=== PATIENT | male | born 1965 | race Two or more races ===

== ENCOUNTER 2017-07-10 19:51 | Inpatient (IN) | payer MEDICARE, OTHER ==
[~2017-07-10] VITALS: Ht 175.3 cm; Wt 86.6 kg
[2017-07-10 20:20] LABS: BASOPHILS % (AUTO) 0.7 % (0.0-2.0); EOSINOPHILS # (AUTO) 0.1 /CMM (0.0-0.7); EOSINOPHILS % (AUTO) 2.2 % (0.0-6.0); HEMATOCRIT 42 % (39-51); LYMPHOCYTES # (AUTO) 1.5 /CMM (0.8-4.8); LYMPHOCYTES % (AUTO) 23.2 % (20.0-44.0); MEAN CORPUSCULAR HEMOGLOBIN 29 PG (26.0-33.0); MEAN CORPUSCULAR HGB CONC 33 g/dl (31.0-36.0); MEAN CORPUSCULAR VOLUME 86 fL (80-96); MONOCYTES # (AUTO) 0.4 /CMM (0.1-1.30); MONOCYTES % (AUTO) 6.6 % (2.0-12.0); NEUTROPHILS # (AUTO) 4.4 /CMM (1.8-8.9); NEUTROPHILS % (AUTO) 67.3 % (43.0-81.0); PLATELET COUNT (AUTO) 269 /CMM (150-450); RDW COEFFICIENT OF VARIATION 14.5 (11.5-15.0); WHITE BLOOD COUNT (AUTO) 6.4 K/uL (4.3-11.0)
--- NOTE | 2017-07-10 20:25 | NUR ---
PT NAVIN, PT STATES HE WANTS TO KILLHIMSELF BUT DENIES HI PT FROM [facility], PT AOX3 RR EVEN AND UNLABORED. NO SOB NOTED. NAD NOTED. NO NVD AT THIS TIME. PT GOWNED WAITING FOR MD REYNA. PT STATES NO ACTIVE PLAN AT THIS TIME. SAFETY PRECAUTIONS PLACED.
--- NOTE | 2017-07-10 20:26 | NUR ---
LAB AT BEDSIDE FOR BLOOD DRAW.
[2017-07-10 20:45] LABS: CALCIUM, SERUM 9.3 mg/dL (8.5-10.1); CARBON DIOXIDE 30 mmol/L (21-32); CHLORIDE 103 mmol/L (98-107); GLUCOSE 93 mg/dL (74-106); SODIUM SERUM 141 mmol/L (136-145); UREA NITROGEN, BLOOD 20 mg/dL (7-18)
[2017-07-10 21:02] LABS: ALANINE AMINOTRANSFERASE 17 U/L (12-78); ALBUMIN 3.9 g/dL (3.4-5.0); ALCOHOL, BLOOD < 3 mg/dL (0-0); ALKALINE PHOSPHATASE 74 U/L (46-116); ASPARTATE AMINOTRANSFERASE 16 U/L (15-37); BILIRUBIN,DIRECT 0.1 mg/dL (0.0-0.2); BILIRUBIN,TOTAL 0.3 mg/dL (0.2-1.0); SALICYLATE 6.6 mg/dL (2.8-20.0); TOTAL PROTEIN, SERUM 7.6 g/dL (6.4-8.2)
[2017-07-10 21:07] LABS: ACETAMINOPHEN 0 ug/ml (10-30)
[2017-07-10] MEDS ORDERED: LIDOCAINE 2% JEL UROJET 10 ML MM ONE ×2 (21:51→22:00)
--- NOTE | 2017-07-10 22:21 | NUR ---
URINE COLLECTED. CALLED LAB FOR SVP.
--- NOTE | 2017-07-10 22:32 | NUR ---
PT COMFORTABLE AT THIS TIME. NO C/O PAIN.
[2017-07-10 22:53] LABS: APPEARANCE,URINE CLEAR (CLEAR); BILIRUBIN,URINE NEGATIVE (NEGATIVE); BLOOD, URINE NEGATIVE Ery/uL (NEGATIVE); COLOR,URINE YELLOW (YELLOW); KETONES,URINE TRACE (NEGATIVE); LEUKOCYTE ESTERASE ,URINE NEGATIVE (NEGATIVE); NITRITE, URINE NEGATIVE (NEGATIVE); PROTEIN,URINE NEGATIVE (NEGATIVE); UGLUCOSE NEGATIVE (NEGATIVE); UROBILINOGEN,URINE 0.2 EU/dL (0.2)
--- NOTE | 2017-07-10 22:55 | NUR ---
ART AT BEDSIDE FOR EVAL.
--- NOTE | 2017-07-10 23:00 | NUR ---
PER ART. PT PLACED ON 5150 HOLD.
[2017-07-10 23:17] LABS: BACTERIA,URINE None seen /HPF (None Seen); HYALINE CASTS, URINE Few /LPF (None Seen); RBC,URINE 0-2 /HPF (0-2); SQUAMOUS EPITHELIAL CELL,UR Few /HPF (None Seen); WBC,URINE 0-2 /HPF (0-3)
[2017-07-10 23:18] LABS: MUCUS,URINE Moderate /LPF (None Seen)
--- NOTE | 2017-07-10 23:20 | NUR ---
REPORT GIVEN TO JOHN LEE FOR [facility] 220U
[2017-07-10] MEDS ORDERED: HYDR-552 PO (23:28)
[2017-07-10] MEDS ORDERED: BACL10TA PO (23:28)
[2017-07-10] MEDS ORDERED: ACET-868 PO (23:28)
[2017-07-10] MEDS ORDERED: MELO-264 PO (23:28)
[2017-07-10] MEDS ORDERED: CARB-93 PO (23:28)
[2017-07-10] MEDS ORDERED: PARO20TA6 PO (23:28)
[2017-07-10] MEDS ORDERED: SENN8.6T6 PO (23:28)
[2017-07-10] MEDS ORDERED: BISA10SU61 RC (23:28)
--- NOTE | 2017-07-11 | NUR ---
PT TRANSFERRED VIA [facility].
[2017-07-11 00:10] VITALS: BP 115/76
--- NOTE | 2017-07-11 00:10 | NUR ---
GPS ADMISSION NOTE, RECEIVED PATIENT FROM [facility] . PATIENT ARRIVED ON THIS UNIT AT 0010 VIA STRETCHER WITH 1 CHAIN TENDER ESCORT. PATIENT ADMITTED ON A 5150 HOLD FOR DTS. PER HOLD PATIENT IS ALERT AND ORIENTED X 4, COOPERATIVE, DEPRESSED, AND WANTS TO END HIS LIFE BY CUTTING HIS WRISTS. PATIENT IS UNABLE TO CONTRACT FOR SAFETY AT THIS TIME. THE 5150 WAS REVIEWED AND THE DOCUMENTATION IN THE 5150 HOLD APPEARS TO REFLECT THE PRESENTATION OF THE PATIENT. UPON FACE TO FACE ASSESSMENT PATIENT IS CURRENTLY LYING IN BED AWAKE, HAS A COMPLAINT OF CHRONIC NECK, BACK, AND LEFT LEG PAIN. PATIENT IS TAKING ORAL PAIN MEDICATION FOR THIS PAIN. PATIENT IS DISPLAYING NO S/S OF APPARENT DISTRESS. PATIENT BREATHING IS UNLABORED WITH EQUAL RISE AND FALL OF THE CHEST. PATIENT IS ALERT AND ORIENTATED X 4 ON ROOM AIR. PATIENT ASSISTED WITH TURING AND REPOSITIONING Q2HR AND PRN FOR COMFORT AND CIRCULATION. PATIENT HAS NO NEEDS AT THIS TIME. PATIENT IS NOTED TO BEING WITHDRAWN, DEPRESSED, DISHEVELED, DISORGANIZED, COOPERATIVE, AND NEEDS REDIRECTION. PATIENT IS UNDER THE PSYCHIATRIC CARE OF DR. ARSHAD AND THE MEDICAL CARE OF LAWRENCE WOODARD. PATIENT BELONGINGS WERE INVENTORIED AND CHECKED FOR CONTRABAND. ALL CONTRABAND REMOVED AND STORED IN PATIENT HALLWAY LOCKER. PATIENT ADVANCED DIRECTIVES PREFERENCE, IMMUNIZATIONS QUESTIONER, NECESSARY PAPERWORK, AND SKIN ASSESSMENT COMPLETED. PATIENT ORIENTATED TO ROOM, FLOOR, AND STAFF WITH ALL QUESTIONS ANSWERED. PATIENT EDUCATED ON THE USE OF THE CALL GAN. PATIENT BED SIDE RAILS ARE UP X 2 FOR SAFETY. PATIENT BED IS LOCKED, LOW AND I WILL CONTINUE TO MONITOR THIS PATIENT Q 15 MIN WITH THE HELP OF STAFF TO MAINTAIN SAFETY.
[2017-07-11] MEDS ORDERED: LORAZEPAM 0.5 MG TABLET PO PRN (00:30)
[2017-07-11] MEDS ORDERED: MAGNESIUM HYDROXIDE 30 ML UDC PO PRN (00:30)
[2017-07-11] MEDS ORDERED: ACETAMINOPHEN 325 MG TABLET PO PRN (00:30)
[2017-07-11] MEDS ORDERED: MAG HYDROX/AL HYDROX/SIMETH 30 ML UDC PO PRN (00:30)
[2017-07-11] MEDS ORDERED: BISACODYL SUPP (10 MG) 10 MG/SUPP.RECT SUPP.RECT RC PRN (01:00)
[2017-07-11] MEDS ORDERED: Z GUARD REMEDY 4 OZ OINT TP PRN (02:30)
[2017-07-11 07:57] LABS: CREATININE 0.7 mg/dL (0.6-1.3)
[2017-07-11 08:00] VITALS: BP 145/70
[2017-07-11] MEDS ORDERED: HYDROCODONE/APAP 5/325MG 1 EACH TABLET PO PRN (09:00)
[2017-07-11] MEDS: BACLOFEN (10 MG) 10 MG TABLET PO SCH ×3 (10:00→18:19)
[2017-07-11] MEDS: CARBIDOPA/LEVODOPA 25/100 MG 1 UDTAB PO SCH ×3 (10:00→18:20)
--- NOTE | 2017-07-11 11:30 | NUR ---
DR. ARSHAD IN TO SEE PT.
[2017-07-11] MEDS: PAROXETINE HCL 20 MG TABLET PO SCH (13:52)
[2017-07-11 15:47] VITALS: BP 129/85
--- NOTE | 2017-07-11 16:12 | NUR ---
Initial Discharge Plan Patient states he lives at [facility] [address], [place] [address] and wishes to continue there after discharge. SW spoke to Luann from [facility] who informed her that patient is able to return upon discharge. Patient stated that his and son are homeless and that they have been homeless since December 2015. Patient stated that his is trying to find a place to live together, but understands that he is going to go back to [facility] after discharge. SW attempted to reach , Mercedes [phone] and left a voicemail with contact info. SW will help to arrange safe and proper discharge
[2017-07-11 20:16] VITALS: BP 127/85
[2017-07-11] MEDS: SENNOSIDES 8.6 MG TABLET PO SCH (21:34)
[2017-07-12] MEDS: PAROXETINE HCL 20 MG TABLET PO SCH (08:14)
[2017-07-12] MEDS: CARBIDOPA/LEVODOPA 25/100 MG 1 UDTAB PO SCH ×3 (08:15→17:02)
[2017-07-12] MEDS: BACLOFEN (10 MG) 10 MG TABLET PO SCH ×3 (08:15→17:02)
[2017-07-12 08:57] VITALS: BP 118/67
[2017-07-12] MEDS ORDERED: ARIPIPRAZOLE 2 MG TABLET PO SCH (09:00)
--- NOTE | 2017-07-12 15:01 | NUR ---
SW met face to face with pt's sister, Luisa [place] [phone] when she came by to visit pt. Luisa stated that she wanted to care for pt at home, with home health. Patient was in agreement. SW received a call from pt's , Mercedes, who stated she did not think was capable of making his own decisions and stated she was the only one who could care for him.
[2017-07-12 19:40] VITALS: BP 123/78
[2017-07-12] MEDS: SENNOSIDES 8.6 MG TABLET PO SCH (21:58)
[2017-07-13 08:00] VITALS: BP 109/73
[2017-07-13] MEDS: BACLOFEN (10 MG) 10 MG TABLET PO SCH ×3 (08:44→16:41)
[2017-07-13] MEDS: CARBIDOPA/LEVODOPA 25/100 MG 1 UDTAB PO SCH ×3 (08:44→16:41)
[2017-07-13] MEDS: PAROXETINE HCL 20 MG TABLET PO SCH (08:44)
--- NOTE | 2017-07-13 13:26 | NUR ---
SHOW HOST-NOTES PATIENT COMPLAINED OF LEFT FOOT PAIN OFFERED NORCO BUT PATIENT REFUSED INSTEAD HE WANTS DULCOLAX FOR CONSTIPATION. DULCOLAX SUP. GIVEN PRN ORDER. WILL CONT. MONITORING .
--- NOTE | 2017-07-13 14:40 | NUR ---
MANAGER DRUG SAFETY-NOTES PATIENT HAD A LARGE BM,DULCOLAX SUP. WAS EFFECTIVE.
[2017-07-13 16:00] VITALS: BP 114/70
[2017-07-13 20:00] VITALS: BP 134/86
[2017-07-13 20:03] VITALS: BP 134/86
[2017-07-13] MEDS: SENNOSIDES 8.6 MG TABLET PO SCH (21:02)
--- NOTE | 2017-07-13 21:14 | NUR ---
GPS/COMBINATION MACHINE TENDER NOTES: PT. REFUSED HS SENNA 8.6MG PO ORDERED. OFFERED 3X. EXPLAINED RISK AND BENEFITS. PT. STILL REFUSED. WILL CONTINUE TO MONITOR.
[2017-07-14 08:00] VITALS: BP 131/80
[2017-07-14] MEDS: PAROXETINE HCL 20 MG TABLET PO SCH (08:58)
[2017-07-14] MEDS: CARBIDOPA/LEVODOPA 25/100 MG 1 UDTAB PO SCH ×3 (08:58→16:48)
[2017-07-14] MEDS: BACLOFEN (10 MG) 10 MG TABLET PO SCH ×3 (08:58→16:48)
--- NOTE | 2017-07-14 15:57 | NUR ---
MARLENE left voicemail to Luisa [place] [phone], pt's sister. MARLENE stated that patient will more likely be discharged on Monday, but that she will call Monday morning to confirm. MARLENE also stated that she will put in an order for home health.
[2017-07-14 16:14] VITALS: BP 115/73
[2017-07-14 20:00] VITALS: BP 120/76
[2017-07-14] MEDS: SENNOSIDES 8.6 MG TABLET PO SCH (21:20)
[2017-07-14] MEDS: ZOLPIDEM TARTRATE 5 MG TABLET PO PRN (21:46)
[2017-07-15 08:00] VITALS: BP 114/79
[2017-07-15] MEDS: CARBIDOPA/LEVODOPA 25/100 MG 1 UDTAB PO SCH ×3 (08:51→17:31)
[2017-07-15] MEDS: PAROXETINE HCL 20 MG TABLET PO SCH (08:51)
[2017-07-15] MEDS: BACLOFEN (10 MG) 10 MG TABLET PO SCH ×3 (08:52→17:31)
[2017-07-15 16:00] VITALS: BP 97/67
[2017-07-15 20:00] VITALS: BP 125/80
--- NOTE | 2017-07-15 22:00 | NUR ---
RN NOTES PATIENT SELECTIVE IN MEDICATION, REFUSING SENNA, AFTER EXPLAINING MEDICATION, PATIENT AGREED TO TAKE MEDICATION, WILL CONTINUE TO MONITOR.
[2017-07-15] MEDS: SENNOSIDES 8.6 MG TABLET PO SCH (22:15)
--- NOTE | 2017-07-16 07:00 | NUR ---
RN NOTES SLEEPING COMFORTABLY IN BED, AROUSEABLE BY TOUCH AND VOICE, NO DISTRESS, CALM, NO BEHAVIOR DURING SHIFT
[2017-07-16 07:53] VITALS: BP 110/63
[2017-07-16] MEDS: PAROXETINE HCL 20 MG TABLET PO SCH (08:52)
[2017-07-16] MEDS: CARBIDOPA/LEVODOPA 25/100 MG 1 UDTAB PO SCH ×3 (08:52→16:31)
[2017-07-16] MEDS: BACLOFEN (10 MG) 10 MG TABLET PO SCH ×3 (08:52→16:31)
[2017-07-16 15:35] VITALS: BP 109/62
[2017-07-16 19:48] VITALS: BP 103/64
[2017-07-16] MEDS: SENNOSIDES 8.6 MG TABLET PO SCH (21:20)
[2017-07-16] MEDS: ZOLPIDEM TARTRATE 5 MG TABLET PO PRN (21:23)
[2017-07-17 08:02] VITALS: BP 105/65
[2017-07-17] MEDS: BACLOFEN (10 MG) 10 MG TABLET PO SCH ×2 (08:35→12:45)
[2017-07-17] MEDS: PAROXETINE HCL 20 MG TABLET PO SCH (08:35)
[2017-07-17] MEDS: CARBIDOPA/LEVODOPA 25/100 MG 1 UDTAB PO SCH ×2 (08:35→12:46)
[2017-07-17 15:33] VITALS: BP 107/69
--- NOTE | 2017-07-17 15:33 | NUR ---
Per pt's and pt's sister request, SW faxed a referral for home health to [facility]. [phone]/fax number [phone]
--- NOTE | 2017-07-17 16:00 | NUR ---
RN NOTES: 51 YEAR OLD MALE DISCHARGED HOME IN STABLE CONDITION WITH SISTER. PATIENT DISCHARGED TO [address]. NONLABORED BREATHING NOTED. NO SIGNS OF ANXIETY NOTED. PATIENT DENIES PAIN. VITAL SIGNS WNL. PATIENT DISCHARGED WITH HOME HEALTH. PATIENT COOPERATIVE AND COMPLIANT. PATIENT DENIES SUICIDAL IDEATION AND DENIES HI. SKIN CHECKED. CLEAN AND INTACT. BELONGINGS RETURNED TO PATIENT. PRESCRIPTION EXPLAINED AND GIVEN TO PATIENT.
--- NOTE | 2017-07-17 16:03 | NUR ---
Discharge Note: Patient will be discharged home with his sister, Luisa to [address] [place] [address] via private transportation at 4pm. Patient will be picked up by his sister, Luisa [phone]. Patient will follow up with his primary care physician, Dr. Tracy Perez [address] [address] [phone] on Wednesday 07/18 at 10:30am. Dr. Perez will also refer patient to a psychiatrist at that time. However, social director also provided patient with a referral to [facility] [address] [place] [address] . utility worker driver faxed over a home health order and referral packet to [facility] / fax number [phone].
== END 2017-07-17 16:00 | disposition home or self-care (01) | DRG 885 ==
LOC: ER 19:53 → GPS 23:18
PROVIDERS: ADMIT Psychiatry & Neurology Psychiatry; ATTEND Nurse Practitioner Acute Care
DX: F33.3 Major depressive disorder, recurrent, severe with psychotic symptoms (principal); G20 Parkinson's disease; R45.851 Suicidal ideations; M43.6 Torticollis; Z79.899 Other long term (current) drug therapy
CPT/HCPCS: 36415; 80048-TC; 80061-TC; 80076-TC; 80305; 81000-TC; 82565-TC; 85025-TC; 87081-TC; 97116-TC; 97530-TC; A4606; G0480; J3490; Z7610